=== PATIENT | female | born 1990 | race Caucasian/White ===

== ENCOUNTER 2021-01-15 07:50 | Day surgery (SDC) | payer BC, OTHER ==
[2021-01-13 15:45] LABS: BLOOD UREA NITROGEN,BUN 12 mg/dL (7.0-18.0); CARBON DIOXIDE,CO2 28.4 mmol/L (21.0-32.0); CHLORIDE,CL 101 mmol/L (98-107); GLUCOSE RANDOM 79 mg/dL (74-106); POTASSIUM,K 3.9 mmol/L (3.5-5.1); SODIUM,NA 136 mmol/L (136-145)
[~2021-01-15 07:50] MED LIST: Sodium Chloride 0.9% 10 ML SDV IV PRN; Sodium Chloride 0.9% 10 ML Syringe FLUSH PRN; Sodium Chloride 0.9% 2.5 ML Syringe FLUSH PRN; ceFAZolin 2 GM in Premix Bag 1 BAG IV ONE
[2021-01-15] MEDS ORDERED: Dexamethasone 4 MG/ML 5 ML MDV ONE (08:06)
[2021-01-15] MEDS ORDERED: Sugammadex Sodium 200 MG/2 ML VIAL ONE (08:06)
[2021-01-15] MEDS ORDERED: Rocuronium Bromide 50 MG/5 ML Syringe ONE (08:06)
[2021-01-15] MEDS ORDERED: Lidocaine 2% 5 ML SDV ONE (08:06)
[2021-01-15] MEDS ORDERED: fentaNYL 100 MCG/2 ML SDV ONE ×2 (08:06→09:14)
[2021-01-15] MEDS ORDERED: Propofol 200 MG/20 ML SDV ONE (08:06)
[2021-01-15] MEDS ORDERED: Ondansetron 4 MG/2 ML SDV ONE (08:06)
[2021-01-15] MEDS ORDERED: Midazolam 1 MG/ML 2 ML SDV ONE (08:07)
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
[2021-01-15] MEDS ORDERED: Ondansetron 4 MG/2 ML SDV IVPUSH PRN ×2 (08:09→09:57)
[2021-01-15] MEDS ORDERED: Morphine 10 MG/ML Syringe IVPUSH PRN (08:09)
[2021-01-15] MEDS ORDERED: Naloxone 0.4 MG/ML Syringe IVPUSH PRN (08:09)
[2021-01-15] MEDS ORDERED: Albuterol 0.083% 2.5 MG/3 ML Neb Soln NEB PRN (08:09)
[2021-01-15] MEDS ORDERED: fentaNYL 100 MCG/2 ML SDV IVPUSH PRN (08:09)
[2021-01-15] MEDS ORDERED: Metoclopramide 10 MG/2 ML SDV IVPUSH PRN (08:09)
[2021-01-15] MEDS: Lactated Ringers 1,000 ML IV SCH ×2 (08:24→13:58)
[2021-01-15] MEDS ORDERED: Fluorescein 5 ML Vial ONE (08:40)
[2021-01-15] MEDS ORDERED: Promethazine 25 MG/ML SDV ONE (08:52)
[2021-01-15] MEDS ORDERED: Sodium Chloride 0.9% 20 ML ONE (09:00)
[2021-01-15] MEDS ORDERED: Ketorolac 30 MG/ML SDV ONE (09:49)
[2021-01-15] MEDS ORDERED: Octyl 2-Cyanoacrylate 1 Tube ONE (09:50)
[2021-01-15] MEDS ORDERED: Ketorolac 30 MG/ML SDV IVPUSH ONE (09:57)
[2021-01-15] MEDS ORDERED: Acetaminophen/oxyCODONE 325-5 MG Tab PO PRN ×2 (09:57)
[2021-01-15] MEDS ORDERED: Ketorolac 30 MG/ML SDV IVPUSH PRN (09:57)
[2021-01-15] MEDS ORDERED: Promethazine 25 MG/ML SDV IM PRN (09:57)
--- NOTE | 2021-01-15 10:04 | PCM.OPNOTE ---
- General Post-Op/Procedure Note Date of Surgery/Procedure: 01/15/21 Operative Procedure(s): TLH,DSO and Cysto Pre Op Diagnosis: Pelvic pain Anesthesia Technique: General ET Tube Primary Surgeon: Alan Leiva EBL in mLs: 50 Condition: Good
--- NOTE | 2021-01-15 10:24 | PCM.POSTAN ---
POST ANESTHESIA ASSESSMENT - MENTAL STATUS Mental Status: Somnolent - VITAL SIGNS Vital Signs: Last Vital Signs Temp 97.0 F 01/15/21 07:55 Pulse 73 01/15/21 07:55 Resp 15 01/15/21 07:55 BP 86/60 L 01/15/21 07:55 Pulse Ox 99 01/15/21 07:55 - RESPIRATORY Respiratory Status: Respiratory Rate WNL, Airway Patent, O2 Saturation Stable - CARDIOVASCULAR CV Status: Pulse Rate WNL, Blood Pressure Stable - GASTROINTESTINAL GI Status: No Symptoms - PAIN Free Text/Narrative:: resting comfortably - POST OP HYDRATION Hydration Status: Adequate & Stable
[2021-01-15] MEDS: HYDROmorphone 1 MG/ML Syringe IVPUSH PRN ×2 (10:42→10:52)
--- NOTE | 2021-01-15 11:12 | PCM48HPAN ---
Post Anesthesia Note - EVALUATION WITHIN 48HRS OF ANESTHETIC Vital Signs in Normal Range: Yes Patient Participated in Evaluation: Yes Respiratory Function Stable: Yes Airway Patent: Yes Cardiovascular Function Stable: Yes Hydration Status Stable: Yes Pain Control Satisfactory: Yes Nausea and Vomiting Control Satisfactory: Yes Mental Status Recovered: Yes Vital Signs: Last Vital Signs Temp 97.5 F 01/15/21 10:13 Pulse 104 H 01/15/21 11:03 Resp 16 01/15/21 11:03 BP 93/64 01/15/21 11:03 Pulse Ox 96 01/15/21 11:03
--- NOTE | 2021-01-15 12:08 | OR ---
SURGEON: Alan Leiva MD DATE OF PROCEDURE: 01/15/2021 PREOPERATIVE DIAGNOSES: Pelvic pain, strong family history of ovarian cancer. POSTOPERATIVE DIAGNOSES: Pelvic pain, strong family history of ovarian cancer. OPERATIONS PERFORMED: Total laparoscopic hysterectomy, laparoscopic bilateral salpingo-oophorectomy, and cystoscopy. PRIMARY SURGEON: Alan Leiva MD APPEALS OFFICER: CORTEZ pérez. ANESTHESIA: General endotracheal intubation. ESTIMATED BLOOD LOSS: Less than 100 mL. COMPLICATIONS: None. FINDINGS: Uterus is about 8 to 10 weeks size. Both ovaries are essentially normal looking. INDICATIONS FOR SURGERY: [place] referred to the admit note. PROCEDURE IN DETAIL: The patient was brought to the OR, properly identified, and after adequate level of anesthesia, the patient was placed in lithotomy position with an access to the abdomen and the vagina. The patient was prepped and draped, and then the colpotomizer manipulator placed in the uterus for manipulation, and appropriate balloon was deflated. The operation shifted abdominally. Stab wound done beneath the umbilicus. The Veress needle was placed in the peritoneal cavity and that cavity insufflated with adequate amount of carbon dioxide, and then utilizing the Visiport technique, the peritoneal cavity was entered. A 10/12 trocar was placed in the left iliac fossa under direct vision and 5 mm trocar in the right iliac fossa. The patient was placed in steep Trendelenburg, and after inspection of the pelvis and familiarizing ourself with the anatomy, the procedure was started by utilizing the Aston Harmonic scalpel. The superior pedicle was coagulated, transected from both sides. Tubes and ovary included with the specimen. The same thing was done with the round ligament, and then the anterior leaf of the broad ligament was dissected downwards medially pushing the bladder completely away from the operative field. The uterine vessel was coagulated at the level of the manipulator on both sides, and then the vagina was entered using the Aston Harmonic scalpel in a circular fashion detaching the cervix from its attachment to the vagina. Once we did that, we removed the cervix, tubes, and ovary vaginally, and pneumoperitoneum re-established by placing vaginal pack in the vagina. Thorough irrigation of the pelvic, inspection of the whole operative field showed no oozing, no bleeding. We proceeded to close the vaginal cuff laparoscopically with 2-0 PDS interrupted, and while we were doing that, we asked Anesthesia personnel to give the patient fluorescein, and after closing the vagina and deflating the abdomen, the [place] catheter was removed. Cystoscopy was performed. The bladder was intact. Both ureteric orifices were seen with the dye coming from both of them verifying the patency of both ureters. Satisfied with these procedures, the procedure ended after closing the laparoscopic incisions in layers. Instrument and sponge counts were correct. The patient tolerated the procedure well, went to recovery room in stable general condition. JADA / ALICJA /[id number]
[2021-01-15] MEDS: Morphine 4 MG/ML Syringe IVPUSH PRN ×3 (13:49→20:26)
[2021-01-15] MEDS: Docusate Sodium 100 MG Cap PO SCH (18:27)
[2021-01-16] MEDS: Morphine 4 MG/ML Syringe IVPUSH PRN ×3 (00:05→08:48)
[2021-01-16 06:17] LABS: BLOOD UREA NITROGEN,BUN 7 mg/dL (7.0-18.0); CARBON DIOXIDE,CO2 28.8 mmol/L (21.0-32.0); CHLORIDE,CL 106 mmol/L (98-107); GLUCOSE RANDOM 95 mg/dL (74-106); POTASSIUM,K 3.5 mmol/L (3.5-5.1); SODIUM,NA 140 mmol/L (136-145)
[2021-01-16] MEDS: Docusate Sodium 100 MG Cap PO SCH (08:48)
--- NOTE | 2021-01-16 08:52 | PCM.SURGPN ---
- General Info Date of Service: 01/16/21 POD#: 1 Functional Status: Reports: Pain Controlled - Review of Systems General: Reports: No Symptoms HEENT: Reports: No Symptoms Pulmonary: Reports: No Symptoms Cardiovascular: Reports: No Symptoms Gastrointestinal: Reports: No Symptoms Genitourinary: Reports: No Symptoms Musculoskeletal: Reports: No Symptoms Skin: Reports: No Symptoms Neurological: Reports: No Symptoms Psychiatric: Reports: No Symptoms - Patient Data Vitals - Most Recent: Last Vital Signs Temp 36.9 C 01/16/21 04:01 Pulse 89 01/16/21 04:01 Resp 18 01/16/21 04:01 BP 95/52 L 01/16/21 04:01 Pulse Ox 99 01/16/21 04:01 Weight - Most Recent: 79.832 kg I&O - Last 24 Hours: Intake & Output 01/15/21 01/16/21 01/16/21 22:59 06:59 14:59 Intake Total 800 950 Output Total 900 650 Balance -100 300 Lab Results Last 24 Hrs: Laboratory Results - last 24 hr 01/16/21 01/16/21 Range/Units 04:50 04:50 WBC 8.94 (4.0-11.0) K/uL RBC 3.71 L (4.30-5.90) M/uL Hgb 10.5 L (12.0-16.0) g/dL Hct 32.4 L (36.0-46.0) % MCV 87.3 (80.0-98.0) fL MCH 28.3 (27.0-32.0) pg MCHC 32.4 (31.0-37.0) g/dL RDW Std Deviation 47.0 (28.0-62.0) fl RDW Coeff of Aubree 15 (11.0-15.0) % Plt Count 229 (150-400) K/uL MPV 10.80 (7.40-12.00) fL Neut % (Auto) 68.9 (48.0-80.0) % Lymph % (Auto) 16.6 (16.0-40.0) % [place] % (Auto) 14.4 (0.0-15.0) % Eos % (Auto) 0.0 (0.0-7.0) % Baso % (Auto) 0.1 (0.0-1.5) % Neut # (Auto) 6.2 H (1.4-5.7) K/uL Lymph # (Auto) 1.5 (0.6-2.4) K/uL [place] # (Auto) 1.3 H (0.0-0.8) K/uL Eos # (Auto) 0.0 (0.0-0.7) K/uL Baso # (Auto) 0.0 (0.0-0.1) K/uL Nucleated RBC % 0.0 /100WBC Nucleated RBCs # 0 K/uL Sodium 140 (136-145) mmol/L Potassium 3.5 (3.5-5.1) mmol/L Chloride 106 (98-107) mmol/L Carbon Dioxide 28.8 (21.0-32.0) mmol/L BUN 7 (7.0-18.0) mg/dL Creatinine 0.7 (0.6-1.0) mg/dL Est Cr Clr Drug Dosing 131.34 mL/min Estimated GFR (MDRD) > 60.0 ml/min Glucose 95 (74-106) mg/dL Calcium 7.6 L (8.5-10.1) mg/dL Med Orders - Current: Current Medications Docusate Sodium (Docusate Sodium 100 Mg Cap) 200 mg PO DAILY [facility] Last Admin: 01/15/21 18:27 Dose: 200 mg Documented by: Lactated Ringer's (Ringers, Lactated) 1,000 mls @ 100 mls/hr IV ASDIRECTED [facility] Last Admin: 01/15/21 13:58 Dose: 100 mls/hr Documented by: Ketorolac Tromethamine (Ketorolac 30 Mg/Ml Sdv) 30 mg IVPUSH Q6H PRN PRN Reason: Pain (severe 7-10) Stop: 01/20/21 09:57 Last Admin: 01/16/21 00:38 Dose: 30 mg Documented by: Morphine Sulfate (Morphine 4 Mg/Ml Syringe) 4 mg IVPUSH Q2H PRN PRN Reason: Pain (severe 7-10) Last Admin: 01/16/21 05:06 Dose: 4 mg Documented by: Ondansetron HCl (Ondansetron 4 Mg/2 Ml Sdv) 4 mg IVPUSH Q6H PRN PRN Reason: Nausea/Vomiting Oxycodone/Acetaminophen (Acetaminophen/Oxycodone 325-5 Mg Tab) 1 tab PO Q4H PRN PRN Reason: Pain (moderate 4-6) Oxycodone/Acetaminophen (Acetaminophen/Oxycodone 325-5 Mg Tab) 2 tab PO Q4H PRN PRN Reason: Pain (moderate 4-6) Desvenlafaxine [ Desvenlafaxine Er] 100 Mg Tab.Er.24h 1 each PO DAILY@1999 [facility] Promethazine HCl (Promethazine 25 Mg/Ml Sdv) 25 mg IM Q6H PRN PRN Reason: Nausea/Vomiting Sodium Chloride (Sodium Chloride 0.9% 10 Ml Syringe) 10 ml FLUSH ASDIRECTED PRN PRN Reason: Keep Vein Open Sodium Chloride (Sodium Chloride 0.9% 2.5 Ml Syringe) 2.5 ml FLUSH ASDIRECTED PRN PRN Reason: Keep Vein Open Sodium Chloride (Sodium Chloride 0.9% 10 Ml Sdv) 10 ml IV ASDIRECTED PRN PRN Reason: IV Use Discontinued Medications Albuterol (Albuterol 0.083% 2.5 Mg/3 Ml Neb Soln) 2.5 mg NEB ONETIME PRN PRN Reason: Wheezing Dexamethasone (Dexamethasone 4 Mg/Ml 5 Ml Mdv) Confirm Administered Dose 20 mg .ROUTE .STK-MED ONE Stop: 01/15/21 08:07 Droperidol (Droperidol 5 Mg/2 Ml Sdv) 0.625 mg IVPUSH ONETIME PRN PRN Reason: Nausea/Vomiting Fentanyl (Fentanyl 100 Mcg/2 Ml Sdv) Confirm Administered Dose 100 mcg .ROUTE .STK-MED ONE Stop: 01/15/21 08:07 Fentanyl (Fentanyl 100 Mcg/2 Ml Sdv) 50 mcg IVPUSH Q5M PRN PRN Reason: Pain (mild 1-3) Fentanyl (Fentanyl 100 Mcg/2 Ml Sdv) Confirm Administered Dose 100 mcg .ROUTE .STK-MED ONE Stop: 01/15/21 09:15 Fluorescein Sodium (Fluorescein 5 Ml Vial) Confirm Administered Dose 5 ml .ROUTE .STK-MED ONE Stop: 01/15/21 08:41 Hydromorphone HCl (Hydromorphone 1 Mg/Ml Syringe) 1 mg IVPUSH Q10M PRN PRN Reason: Pain (moderate 4-6) Last Admin: 01/15/21 10:52 Dose: 1 mg Documented by: Cefazolin Sodium/Dextrose 2 gm (/ Premix) 50 mls @ 100 mls/hr IV ONETIME ONE Stop: 01/13/21 13:57 Acetaminophen (Ofirmev 1000 Mg/100 Ml) Confirm Administered Dose 100 mls @ as directed .ROUTE .ST-MED ONE Stop: 01/15/21 08:07 Sodium Chloride (Normal Saline) Confirm Administered Dose 20 mls @ as directed .ROUTE .ST-MED ONE Stop: 01/15/21 09:01 Ketorolac Tromethamine (Ketorolac 30 Mg/Ml Sdv) Confirm Administered Dose 30 mg .ROUTE .ST-MED ONE Stop: 01/15/21 09:50 Ketorolac Tromethamine (Ketorolac 30 Mg/Ml Sdv) 30 mg IVPUSH ONETIME ONE Stop: 01/15/21 09:58 Last Admin: 01/15/21 13:07 Dose: Not Given Documented by: Lidocaine (Lidocaine 2% 5 Ml Sdv) Confirm Administered Dose 5 ml .ROUTE .ST-MED ONE Stop: 01/15/21 08:07 Metoclopramide HCl (Metoclopramide 10 Mg/2 Ml Sdv) 10 mg IVPUSH ONETIME PRN PRN Reason: Nausea/Vomiting Midazolam HCl (Midazolam 1 Mg/Ml 2 Ml Sdv) Confirm Administered Dose 4 mg .ROUTE .ST-MED ONE Stop: 01/15/21 08:08 Morphine Sulfate (Morphine 10 Mg/Ml Syringe) 2 mg IVPUSH Q10M PRN PRN Reason: Pain (severe 7-10) Naloxone HCl (Naloxone 0.4 Mg/Ml Syringe) 0.1 mg IVPUSH ASDIRECTED PRN PRN Reason: Respiratory Depression Octyl Cyanoacrylate (Octyl 2-Cyanoacrylate 1 Tube) Confirm Administered Dose 1 applic .ROUTE .ST-MED ONE Stop: 01/15/21 09:51 Ondansetron HCl (Ondansetron 4 Mg/2 Ml Sdv) Confirm Administered Dose 4 mg .ROUTE .STBroadHop-MED ONE Stop: 01/15/21 08:07 Ondansetron HCl (Ondansetron 4 Mg/2 Ml Sdv) 4 mg IVPUSH ONETIME PRN PRN Reason: Nausea/Vomiting Promethazine HCl (Promethazine 25 Mg/Ml Sdv) Confirm Administered Dose 25 mg .ROUTE .STK-MED ONE Stop: 01/15/21 08:53 Propofol (Propofol 200 Mg/20 Ml Sdv) Confirm Administered Dose 200 mg .ROUTE .STK-MED ONE Stop: 01/15/21 08:07 Rocuronium [place] (Rocuronium [place] 50 Mg/5 Ml Syringe) Confirm Administered Dose 50 mg .ROUTE .STK-MED ONE Stop: 01/15/21 08:07 Sugammadex Sodium (Sugammadex Sodium 200 Mg/2 Ml Vial) Confirm Administered Dose 200 mg .ROUTE .STK-MED ONE Stop: 01/15/21 08:07 - Exam Wound/Incisions: Healing Well General: Alert, Oriented HEENT: Pupils Equal Neck: Supple Lungs: Clear to Auscultation, Normal Respiratory Effort Cardiovascular: Regular Rate, Regular Rhythm GI/Abdominal Exam: Normal Bowel Sounds, Soft, Non-Tender, No Organomegaly, No Distention, No Abnormal Bruit, No Mass, Pelvis Stable Extremities: Normal Inspection, Normal Range of Motion, Non-Tender, No Pedal Edema, Normal Capillary Refill Skin: Warm, Dry, Intact Neurological: No New Focal Deficit Psy/Mental Status: Alert, Normal Affect, Normal Mood Sepsis Event Note - Evaluation Sepsis Screening Result: No Definite Risk - Focused Exam Vital Signs: Vital Signs Temp Pulse Resp BP Pulse Ox Pulse Ox 01/16/21 04:01 36.9 C 89 18 95/52 L 99 01/16/21 00:08 36.6 C 89 18 105/56 L 98 01/15/21 23:00 96 - Problem List Review Problem List Initiated/Reviewed/Updated: Yes - My Orders Last 24 Hours: Active Orders 24 hr Category Date Time Status Patient Status [ADT] Routine ADT 01/15/21 09:57 Active Antiembolic Devices [RC] PER UNIT ROUTINE Care 01/15/21 09:59 Active Notify Provider Vital Signs [RC] ASDIRECTED Care 01/15/21 09:57 Active Overnight Pulse Oximetry [RC] Click to Edit Care 01/15/21 08:10 Active Oxygen Therapy [RC] ASDIRECTED Care 01/15/21 09:57 Active RT Incentive Spirometry [RC] Q2HWA Care 01/15/21 09:57 Active Up With Assistance [RC] PER UNIT ROUTINE Care 01/15/21 09:57 Active Up ad Abby [RC] PER UNIT ROUTINE Care 01/15/21 09:57 Active Vital Signs [RC] PER UNIT ROUTINE Care 01/15/21 09:57 Active Regular Diet [DIET] Diet 01/15/21 Lunch Active Acetaminophen/oxyCODONE [Percocet 325-5 MG] Med 01/15/21 09:57 Active 1 tab PO Q4H PRN Acetaminophen/oxyCODONE [Percocet 325-5 MG] Med 01/15/21 09:57 Active 2 tab PO Q4H PRN Docusate Sodium [Colace] Med 01/15/21 18:00 Active 200 mg PO DAILY Ketorolac [Toradol] Med 01/15/21 09:57 Active 30 mg IVPUSH Q6H PRN Morphine Med 01/15/21 09:57 Active 4 mg IVPUSH Q2H PRN Ondansetron [Zofran] Med 01/15/21 09:57 Active 4 mg IVPUSH Q6H PRN Patient's Own Medication [Ptom] Med 01/16/21 20:00 Active 1 each PO DAILY@1999 Promethazine [Phenergan] Med 01/15/21 09:57 Active 25 mg IM Q6H PRN Peripheral IV Discontinue [OM.PC] Routine Oth 01/15/21 09:57 Ordered Pulse Oximetry Continuous Monitoring [OM.PC] Routine Oth 01/15/21 08:10 Ordered Sequential Compression Device [OM.PC] Per Unit Routine Oth 01/15/21 09:57 Ordered Resuscitation Status Routine Resus Stat 01/15/21 09:57 Ordered Medication Orders Docusate Sodium (Docusate Sodium 100 Mg Cap) 200 mg PO DAILY [facility] Last Admin: 01/15/21 18:27 Dose: 200 mg Documented by: ASHA Lactated Ringer's (Ringers, Lactated) 1,000 mls @ 100 mls/hr IV ASDIRECTED [facility] Last Admin: 01/15/21 13:58 Dose: 100 mls/hr Documented by: Infusion: 01/15/21 13:58 Dose: 100 mls/hr Documented by: Admin: 01/15/21 08:24 Dose: 100 mls/hr Documented by: PITO Ketorolac Tromethamine (Ketorolac 30 Mg/Ml Sdv) 30 mg IVPUSH Q6H PRN PRN Reason: Pain (severe 7-10) Stop: 01/20/21 09:57 Last Admin: 01/16/21 00:38 Dose: 30 mg Documented by: LORENZA Morphine Sulfate (Morphine 4 Mg/Ml Syringe) 4 mg IVPUSH Q2H PRN PRN Reason: Pain (severe 7-10) Last Admin: 01/16/21 05:06 Dose: 4 mg Documented by: Admin: 01/16/21 00:05 Dose: 4 mg Documented by: Admin: 01/15/21 20:26 Dose: 4 mg Documented by: Admin: 01/15/21 17:06 Dose: 4 mg Documented by: Admin: 01/15/21 13:49 Dose: 4 mg Documented by: JIM Ondansetron HCl (Ondansetron 4 Mg/2 Ml Sdv) 4 mg IVPUSH Q6H PRN PRN Reason: Nausea/Vomiting Oxycodone/Acetaminophen (Acetaminophen/Oxycodone 325-5 Mg Tab) 1 tab PO Q4H PRN PRN Reason: Pain (moderate 4-6) Oxycodone/Acetaminophen (Acetaminophen/Oxycodone 325-5 Mg Tab) 2 tab PO Q4H PRN PRN Reason: Pain (moderate 4-6) Desvenlafaxine [ Desvenlafaxine Er] 100 Mg Tab.Er.24h 1 each PO DAILY@2000 [facility] Promethazine HCl (Promethazine 25 Mg/Ml Sdv) 25 mg IM Q6H PRN PRN Reason: Nausea/Vomiting Sodium Chloride (Sodium Chloride 0.9% 10 Ml Syringe) 10 ml FLUSH ASDIRECTED PRN PRN Reason: Keep Vein Open Sodium Chloride (Sodium Chloride 0.9% 2.5 Ml Syringe) 2.5 ml FLUSH ASDIRECTED PRN PRN Reason: Keep Vein Open Sodium Chloride (Sodium Chloride 0.9% 10 Ml Sdv) 10 ml IV ASDIRECTED PRN PRN Reason: IV Use - Assessment Assessment (Free Text/Narrative):: Uterus posteriorly LH BSO postoperative day #1 patient is doing well ambulatory voiding on regular diet no vaginal bleeding. Her lab work is within normal limit - Plan Plan (Free Text/Narrative):: Patient will be sent home today the post hysterectomy instruction is given to her there is no restriction on her diet she was given a prescription of Narco 5/325 for postoperative pain and she have an appointment to the office in one week
--- NOTE | 2021-01-16 08:53 | PCM.DCSUM1 ---
Discharge Summary - Hospital Course Diagnosis: Stroke: No - Discharge Data Discharge Date: 01/16/21 Discharge Disposition: Home, Self-Care 01 Condition: Good - Referral to Home Health Primary Care Physician: Raina English NP - Patient Summary/Data Operative Procedure(s) Performed: TLH,DSO and Cysto - Patient Instructions Diet: Usual Diet as Tolerated Activity: As Tolerated Driving: Do Not Drive Showering/Bathing: May Shower - Discharge Plan Home Medications: Home Meds Albuterol Sulfate [Albuterol Sulfate HFA] 1 puff INH ASDIRECTED PRN 01/09/21 [History] Ascorbic Acid [Vitamin C] 1,000 mg PO DAILY 01/09/21 [History] Budesonide/Formoterol Fumarate [Symbicort 160-4.5 Mcg Inhaler] 1 puff INH ASDIRECTED PRN 01/09/21 [History] Desvenlafaxine [Desvenlafaxine ER] 100 mg PO DAILY 01/09/21 [History] LORazepam [Ativan] 0.5 mg PO BID PRN 01/09/21 [History] Montelukast Sodium 5 mg PO DAILY 01/09/21 [History] OLANZapine [Olanzapine] 10 mg PO ASDIRECTED PRN 01/09/21 [History] Ondansetron [Zofran] 8 mg PO Q8H PRN 01/09/21 [History] Zinc Gluconate [Zinc] 100 mg PO DAILY 01/09/21 [History] Docusate Sodium [Colace] 200 mg PO DAILY 01/15/21 [History] Simethicone [Phazyme] 500 mg PO DAILY PRN 01/15/21 [History] - Discharge Summary/Plan Comment DC Time >30 min.: Yes Total # of Minutes for Discharge Time: 30 - General Info Date of Service: 01/16/21 Functional Status: Reports: Pain Controlled - Review of Systems General: Reports: No Symptoms HEENT: Reports: No Symptoms Pulmonary: Reports: No Symptoms Cardiovascular: Reports: No Symptoms Gastrointestinal: Reports: No Symptoms Genitourinary: Reports: No Symptoms Musculoskeletal: Reports: No Symptoms Skin: Reports: No Symptoms Neurological: Reports: No Symptoms Psychiatric: Reports: No Symptoms - Patient Data Vitals - Most Recent: Last Vital Signs Temp 36.9 C 01/16/21 04:01 Pulse 89 01/16/21 04:01 Resp 18 01/16/21 04:01 BP 95/52 L 01/16/21 04:01 Pulse Ox 99 01/16/21 04:01 Weight - Most Recent: 79.832 kg I&O - Last 24 hours: Intake & Output 01/15/21 01/16/21 01/16/21 22:59 06:59 14:59 Intake Total 800 950 Output Total 900 650 Balance -100 300 Lab Results - Last 24 hrs: Laboratory Results - last 24 hr 01/16/21 01/16/21 Range/Units 04:50 04:50 WBC 8.94 (4.0-11.0) K/uL RBC 3.71 L (4.30-5.90) M/uL Hgb 10.5 L (12.0-16.0) g/dL Hct 32.4 L (36.0-46.0) % MCV 87.3 (80.0-98.0) fL MCH 28.3 (27.0-32.0) pg MCHC 32.4 (31.0-37.0) g/dL RDW Std Deviation 47.0 (28.0-62.0) fl RDW Coeff of Aubree 15 (11.0-15.0) % Plt Count 229 (150-400) K/uL MPV 10.80 (7.40-12.00) fL Neut % (Auto) 68.9 (48.0-80.0) % Lymph % (Auto) 16.6 (16.0-40.0) % [place] % (Auto) 14.4 (0.0-15.0) % Eos % (Auto) 0.0 (0.0-7.0) % Baso % (Auto) 0.1 (0.0-1.5) % Neut # (Auto) 6.2 H (1.4-5.7) K/uL Lymph # (Auto) 1.5 (0.6-2.4) K/uL [place] # (Auto) 1.3 H (0.0-0.8) K/uL Eos # (Auto) 0.0 (0.0-0.7) K/uL Baso # (Auto) 0.0 (0.0-0.1) K/uL Nucleated RBC % 0.0 /100WBC Nucleated RBCs # 0 K/uL Sodium 140 (136-145) mmol/L Potassium 3.5 (3.5-5.1) mmol/L Chloride 106 (98-107) mmol/L Carbon Dioxide 28.8 (21.0-32.0) mmol/L BUN 7 (7.0-18.0) mg/dL Creatinine 0.7 (0.6-1.0) mg/dL Est Cr Clr Drug Dosing 131.34 mL/min Estimated GFR (MDRD) > 60.0 ml/min Glucose 95 (74-106) mg/dL Calcium 7.6 L (8.5-10.1) mg/dL Med Orders - Current: Current Medications Docusate Sodium (Docusate Sodium 100 Mg Cap) 200 mg PO DAILY [facility] Last Admin: 01/15/21 18:27 Dose: 200 mg Documented by: Lactated Ringer's (Ringers, Lactated) 1,000 mls @ 100 mls/hr IV ASDIRECTED [facility] Last Admin: 01/15/21 13:58 Dose: 100 mls/hr Documented by: Ketorolac Tromethamine (Ketorolac 30 Mg/Ml Sdv) 30 mg IVPUSH Q6H PRN PRN Reason: Pain (severe 7-10) Stop: 01/20/21 09:57 Last Admin: 01/16/21 00:38 Dose: 30 mg Documented by: Morphine Sulfate (Morphine 4 Mg/Ml Syringe) 4 mg IVPUSH Q2H PRN PRN Reason: Pain (severe 7-10) Last Admin: 01/16/21 05:06 Dose: 4 mg Documented by: Ondansetron HCl (Ondansetron 4 Mg/2 Ml Sdv) 4 mg IVPUSH Q6H PRN PRN Reason: Nausea/Vomiting Oxycodone/Acetaminophen (Acetaminophen/Oxycodone 325-5 Mg Tab) 1 tab PO Q4H PRN PRN Reason: Pain (moderate 4-6) Oxycodone/Acetaminophen (Acetaminophen/Oxycodone 325-5 Mg Tab) 2 tab PO Q4H PRN PRN Reason: Pain (moderate 4-6) Desvenlafaxine [ Desvenlafaxine Er] 100 Mg Tab.Er.24h 1 each PO DAILY@1999 [facility] Promethazine HCl (Promethazine 25 Mg/Ml Sdv) 25 mg IM Q6H PRN PRN Reason: Nausea/Vomiting Sodium Chloride (Sodium Chloride 0.9% 10 Ml Syringe) 10 ml FLUSH ASDIRECTED PRN PRN Reason: Keep Vein Open Sodium Chloride (Sodium Chloride 0.9% 2.5 Ml Syringe) 2.5 ml FLUSH ASDIRECTED PRN PRN Reason: Keep Vein Open Sodium Chloride (Sodium Chloride 0.9% 10 Ml Sdv) 10 ml IV ASDIRECTED PRN PRN Reason: IV Use Discontinued Medications Albuterol (Albuterol 0.083% 2.5 Mg/3 Ml Neb Soln) 2.5 mg NEB ONETIME PRN PRN Reason: Wheezing Dexamethasone (Dexamethasone 4 Mg/Ml 5 Ml Mdv) Confirm Administered Dose 20 mg .ROUTE .STK-MED ONE Stop: 01/15/21 08:07 Droperidol (Droperidol 5 Mg/2 Ml Sdv) 0.625 mg IVPUSH ONETIME PRN PRN Reason: Nausea/Vomiting Fentanyl (Fentanyl 100 Mcg/2 Ml Sdv) Confirm Administered Dose 100 mcg .ROUTE .STK-MED ONE Stop: 01/15/21 08:07 Fentanyl (Fentanyl 100 Mcg/2 Ml Sdv) 50 mcg IVPUSH Q5M PRN PRN Reason: Pain (mild 1-3) Fentanyl (Fentanyl 100 Mcg/2 Ml Sdv) Confirm Administered Dose 100 mcg .ROUTE .STK-MED ONE Stop: 01/15/21 09:15 Fluorescein Sodium (Fluorescein 5 Ml Vial) Confirm Administered Dose 5 ml .ROUTE .STK-MED ONE Stop: 01/15/21 08:41 Hydromorphone HCl (Hydromorphone 1 Mg/Ml Syringe) 1 mg IVPUSH Q10M PRN PRN Reason: Pain (moderate 4-6) Last Admin: 01/15/21 10:52 Dose: 1 mg Documented by: Cefazolin Sodium/Dextrose 2 gm (/ Premix) 50 mls @ 100 mls/hr IV ONETIME ONE Stop: 01/13/21 13:57 Acetaminophen (Ofirmev 1000 Mg/100 Ml) Confirm Administered Dose 100 mls @ as directed .ROUTE .STK-MED ONE Stop: 01/15/21 08:07 Sodium Chloride (Normal Saline) Confirm Administered Dose 20 mls @ as directed .ROUTE .STK-MED ONE Stop: 01/15/21 09:01 Ketorolac Tromethamine (Ketorolac 30 Mg/Ml Sdv) Confirm Administered Dose 30 mg .ROUTE .STBevBucks-MED ONE Stop: 01/15/21 09:50 Ketorolac Tromethamine (Ketorolac 30 Mg/Ml Sdv) 30 mg IVPUSH ONETIME ONE Stop: 01/15/21 09:58 Last Admin: 01/15/21 13:07 Dose: Not Given Documented by: Lidocaine (Lidocaine 2% 5 Ml Sdv) Confirm Administered Dose 5 ml .ROUTE .STK-MED ONE Stop: 01/15/21 08:07 Metoclopramide HCl (Metoclopramide 10 Mg/2 Ml Sdv) 10 mg IVPUSH ONETIME PRN PRN Reason: Nausea/Vomiting Midazolam HCl (Midazolam 1 Mg/Ml 2 Ml Sdv) Confirm Administered Dose 4 mg .ROUTE .STBevBucks-MED ONE Stop: 01/15/21 08:08 Morphine Sulfate (Morphine 10 Mg/Ml Syringe) 2 mg IVPUSH Q10M PRN PRN Reason: Pain (severe 7-10) Naloxone HCl (Naloxone 0.4 Mg/Ml Syringe) 0.1 mg IVPUSH ASDIRECTED PRN PRN Reason: Respiratory Depression Octyl Cyanoacrylate (Octyl 2-Cyanoacrylate 1 Tube) Confirm Administered Dose 1 applic .ROUTE .STBevBucks-MED ONE Stop: 01/15/21 09:51 Ondansetron HCl (Ondansetron 4 Mg/2 Ml Sdv) Confirm Administered Dose 4 mg .ROUTE .STBevBucks-MED ONE Stop: 01/15/21 08:07 Ondansetron HCl (Ondansetron 4 Mg/2 Ml Sdv) 4 mg IVPUSH ONETIME PRN PRN Reason: Nausea/Vomiting Promethazine HCl (Promethazine 25 Mg/Ml Sdv) Confirm Administered Dose 25 mg .ROUTE .ST[place]ev[place]ucks-MED ONE Stop: 01/15/21 08:53 Propofol (Propofol 200 Mg/20 Ml Sdv) Confirm Administered Dose 200 mg .ROUTE .STBev[facility]ucks-MED ONE Stop: 01/15/21 08:07 Rocuronium Drayden (Rocuronium Drayden 50 Mg/5 Ml Syringe) Confirm Administered Dose 50 mg .ROUTE .STBevBucks-MED ONE Stop: 01/15/21 08:07 Sugammadex Sodium (Sugammadex Sodium 200 Mg/2 Ml Vial) Confirm Administered Dose 200 mg .ROUTE .K-MED ONE Stop: 01/15/21 08:07 - Exam General: Reports: Alert, Oriented HEENT: Reports: Pupils Equal, Pupils Reactive, EOMI, Mucous Membr. Moist/[place] Neck: Reports: Supple Lungs: Reports: Clear to Auscultation, Normal Respiratory Effort Cardiovascular: Reports: Regular Rate, Regular Rhythm GI/Abdominal Exam: Normal Bowel Sounds, Soft, Non-Tender, No Organomegaly, No Distention, No Abnormal Bruit, No Mass, Pelvis Stable (Female) Exam: Normal External Exam, Normal Speculum Exam, Normal Bimanual Exam Rectal (Female) Exam: Normal Exam, Normal Rectal Tone Back Exam: Reports: Normal Inspection, Full Range of Motion Extremities: Normal Inspection, Normal Range of Motion, Non-Tender, No Pedal Edema, Normal Capillary Refill Skin: Reports: Warm, Dry, Intact Wound/Incisions: Reports: Healing Well Neurological: Reports: No New Focal Deficit Psy/Mental Status: Reports: Alert, Normal Affect, Normal Mood
[2021-01-16] MEDS ORDERED: Desvenlafaxine [Desvenlafaxine Er] 100 MG Tab.Er.24h PO SCH (20:00)
== END 2021-01-16 10:30 | disposition home or self-care (01) ==
LOC: MW.SDS 07:50 → MW.MS 10:42 → MW.SDS 01-16 10:30
PROVIDERS: ATTEND Obstetrics & Gynecology
DX: D25.9 Leiomyoma of uterus, unspecified (principal); N87.9 Dysplasia of cervix uteri, unspecified; N83.02 Follicular cyst of left ovary; N83.01 Follicular cyst of right ovary; Z80.41 Family history of malignant neoplasm of ovary; Z79.899 Other long term (current) drug therapy
CPT/HCPCS: 36415; 58571; 80048; 84703; 85025; 85027; 86850; 86900; 86901; 88309; A9270; J0131; J1100; J1170; J1885; J2250; J2270; J2704; J3010; J3490; J7030; J7120; 00840; J2405

== ENCOUNTER 2021-02-03 14:58 | Emergency (ER) | payer OTHER ==
[2021-02-03] MEDS ORDERED: Ondansetron 4 MG/2 ML SDV IVPUSH ONE (15:12)
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
[2021-02-03 15:53] LABS: BLOOD UREA NITROGEN,BUN 11 mg/dL (7.0-18.0); CARBON DIOXIDE,CO2 28.4 mmol/L (21.0-32.0); CHLORIDE,CL 103 mmol/L (98-107); GLUCOSE RANDOM 99 mg/dL (74-106); LIPASE 100 U/L (73-393); POTASSIUM,K 4.4 mmol/L (3.5-5.1); SODIUM,NA 140 mmol/L (136-145)
--- NOTE | 2021-02-03 16:23 | CR ---
INDICATION: chest pain CHEST, ONE VIEW An AP radiograph of the chest was performed. Comparison: 10/24/2019. The lungs appear clear and no pleural effusions are identified. The cardiomediastinal silhouette and pulmonary vasculature appear normal, as do the visualized bones. IMPRESSION: No acute intrathoracic abnormality identified. RADHA MARTINEZ MD [facility] [employer] Dictated by: Oscar Martinez MD @ 02/03/2021 16:21:11 (Electronically Signed)
--- NOTE | 2021-02-03 17:17 | PCM.EKG ---
#1 Interpretation EKG Date: 02/03/21 Time: 15:27 Rhythm: NSR Rate (Beats/Min): 100 [place]: Normal P-Wave: Present QRS: Normal ST-T: Normal QT: Normal Comparison: NA - No Prior EKG EKG Interpretation Comments: Sinus Tachycardia
--- NOTE | 2021-02-03 17:22 | CT ---
INDICATION: Epigastric pain. Status post hysterectomy January 15, 2021, constipated TECHNIQUE: CT abdomen and pelvis acquired with 100 cc Isovue 370 IV contrast. COMPARISON: None FINDINGS: Lower chest: Unremarkable. Liver: Hepatic steatosis. Spleen: Unremarkable. Pancreas: Unremarkable. Gallbladder and bile ducts: S/p cholecystectomy. Adrenal glands: Unremarkable. Kidneys: Unremarkable. GI tract: Large amount of feces in the colon. Appendix is normal. Vascular structures: Unremarkable. Lymph nodes: Unremarkable. Miscellaneous: Small amount of intraperitoneal free air in the anterior, upper peritoneum. Pelvic Organs: Status post hysterectomy. No extraluminal air or fat stranding around the vaginal cuff. Bones: Unremarkable for age. IMPRESSION: Small amount of intraperitoneal free air. Although postoperative air likely resolves within 7-14 days, this could be due to the recent hysterectomy. No evidence for hollow organ inflammatory processes, bowel wall thickening, or free fluid. Consider surgical or gynecology consultation. Hepatic steatosis. Large amount of feces in the colon. Status post hysterectomy and cholecystectomy. These findings were discussed with Asiya Gonzalez at 5:15 p.m. on February 03, 2021. Please note that all CT scans at this facility use dose modulation, iterative reconstruction, and/or weight-based dosing when appropriate to reduce radiation dose to as low as reasonably achievable. Dictated by Diana Dallas MD @ 02/03/2021 5:20:39 PM (Electronically Signed)
[2021-02-03] MEDS ORDERED: Magnesium Citrate Solution 296 ML Bottle PO ONE (17:30)
== END 2021-02-03 18:00 | disposition home or self-care (01) ==
LOC: MW.ED 14:58
DX: K59.00 Constipation, unspecified (principal); J45.909 Unspecified asthma, uncomplicated; Z88.6 Allergy status to analgesic agent; Z91.030 Bee allergy status; Z88.5 Allergy status to narcotic agent; Z88.8 Allergy status to other drugs, medicaments and biological substances; Z91.040 Latex allergy status; Z91.010 Allergy to peanuts; Z88.0 Allergy status to penicillin; Z91.048 Other nonmedicinal substance allergy status; Z79.899 Other long term (current) drug therapy
CPT/HCPCS: 36415; 71045; 74177; 80053; 81001; 83690; 84484; 85025; 87086; 87635; 93005; 99284; A9270; U0002

== ENCOUNTER 2021-05-07 16:08 | Emergency (ER) | payer OTHER ==
[2021-05-07] MEDS ORDERED: Sodium Chloride 0.9% 10 ML Syringe FLUSH PRN ×2 (16:53→17:02)
[2021-05-07] MEDS ORDERED: Sodium Chloride 0.9% 20 ML SDV IV PRN (16:53)
[2021-05-07] MEDS ORDERED: Sodium Chloride 0.9% 2.5 ML Syringe FLUSH PRN ×2 (16:53→17:02)
[2021-05-07] MEDS ORDERED: Ketorolac 15 MG/ML SDV IVPUSH ONE (17:02)
[2021-05-07] MEDS ORDERED: diphenhydrAMINE 50 MG/ML SDV IVPUSH ONE (17:02)
[2021-05-07] MEDS ORDERED: Metoclopramide 10 MG/2 ML SDV IVPUSH ONE (17:02)
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
[2021-05-07] MEDS ORDERED: Ketorolac 30 MG/ML SDV IVPUSH ONE (17:34)
--- NOTE | 2021-05-07 17:42 | CT ---
INDICATION: Injury. Possible concussion. TECHNIQUE: CT of the head without contrast. Coronal and sagittal reformats are included. COMPARISON: Brain MRI from 01/05/2021. FINDINGS: No acute intracranial hemorrhage. No mass effect or midline shift. No hydrocephalus or extra-axial collections. White matter is within normal limits for age. No acute osseous abnormalities. Mastoid air cells and paranasal sinuses are clear. Normal soft tissues. IMPRESSION: IMPRESSION: 1. No acute intracranial abnormalities. Please note that all CT scans at this facility use dose modulation, iterative reconstruction, and/or weight-based dosing when appropriate to reduce radiation dose to as low as reasonably achievable. Dictated by Shree Waddell MD @ 05/07/2021 5:41:18 PM (Electronically Signed)
--- NOTE | 2021-05-07 17:58 | CT ---
INDICATION: Injury. Possible concussion. TECHNIQUE: CT of the cervical spine without contrast. Coronal and sagittal reformats are included. COMPARISON: None. FINDINGS: No acute fracture or traumatic malalignment of the cervical spine. Craniocervical junction alignment is maintained. No bony spinal canal or neural foraminal stenosis. Imaged intracranial structures, cervical and paraspinous soft tissues are normal in appearance. The visualized pulmonary apices are clear. IMPRESSION: 1. No acute fracture or traumatic malalignment of the cervical spine. Please note that all CT scans at this facility use dose modulation, iterative reconstruction, and/or weight-based dosing when appropriate to reduce radiation dose to as low as reasonably achievable. Dictated by Shree Waddell MD @ 05/07/2021 5:58:16 PM (Electronically Signed)
[2021-05-07 18:29] LABS: BLOOD UREA NITROGEN,BUN 15 mg/dL (7.0-18.0); CARBON DIOXIDE,CO2 26.8 mmol/L (21.0-32.0); CHLORIDE,CL 103 mmol/L (98-107); GLUCOSE RANDOM 82 mg/dL (74-106); POTASSIUM,K 3.9 mmol/L (3.5-5.1); SODIUM,NA 138 mmol/L (136-145)
== END 2021-05-07 18:54 | disposition home or self-care (01) ==
LOC: MW.ED 16:08
DX: G43.909 Migraine, unspecified, not intractable, without status migrainosus (principal); Z88.0 Allergy status to penicillin; Z91.010 Allergy to peanuts; Z91.040 Latex allergy status; Z88.5 Allergy status to narcotic agent; Z91.030 Bee allergy status; Z88.8 Allergy status to other drugs, medicaments and biological substances
CPT/HCPCS: 36415; 70450; 72125; 80053; 85025; 96374; 96375; 99284; J1200; J1885; J2765

== ENCOUNTER 2022-04-11 23:34 | Emergency (ER) | payer BC, OTHER ==
[2022-04-12 00:47] LABS: CORONAVIRUS COVID-19 NAA NEGATIVE (NEGATIVE); INFLUENZA A NAA NEGATIVE (NEGATIVE); INFLUENZA B NAA NEGATIVE (NEGATIVE)
[2022-04-12 01:08] LABS: ACETAMINOPHEN <2.0 ug/mL; BLOOD UREA NITROGEN,BUN 16 mg/dL (7.0-18.0); CARBON DIOXIDE,CO2 28.2 mmol/L (21.0-32.0); CHLORIDE,CL 101 mmol/L (98-107); GLUCOSE RANDOM 100 mg/dL (74-106); POTASSIUM,K 4.2 mmol/L (3.5-5.1); SODIUM,NA 137 mmol/L (136-145)
[2022-04-12 01:15] LABS: ESTIMATED GFR 88 mL/min (>60)
== END 2022-04-12 10:48 ==
LOC: MW.ED 23:34
DX: F32.2 Major depressive disorder, single episode, severe without psychotic features (principal); R45.851 Suicidal ideations; Z88.0 Allergy status to penicillin; Z91.040 Latex allergy status; Z91.010 Allergy to peanuts; Z88.5 Allergy status to narcotic agent; Z91.030 Bee allergy status; Z88.8 Allergy status to other drugs, medicaments and biological substances; Z20.822 Contact with and (suspected) exposure to COVID-19
CPT/HCPCS: 0240U; 36415; 80053; 80143; 80179; 80305; 80307; 81001; 81003; 81025; 83735; 84443; 85025; 93005; 99285

== ENCOUNTER 2022-08-05 17:38 | Emergency (ER) | payer BC ==
[2022-08-05 18:48] LABS: BLOOD UREA NITROGEN,BUN 11 mg/dL (7.0-18.0); CARBON DIOXIDE,CO2 28.6 mmol/L (21.0-32.0); CHLORIDE,CL 104 mmol/L (98-107); GLUCOSE RANDOM 125 mg/dL (74-106); POTASSIUM,K 3.5 mmol/L (3.5-5.1); SODIUM,NA 142 mmol/L (136-145)
[2022-08-05 18:52] LABS: ESTIMATED GFR 101 mL/min (>60)
== END 2022-08-05 19:24 | disposition home or self-care (01) ==
LOC: MW.ED 17:38
DX: R07.89 Other chest pain (principal); R42 Dizziness and giddiness; R53.83 Other fatigue; T45.4X5A Adverse effect of iron and its compounds, initial encounter; J45.909 Unspecified asthma, uncomplicated; Z88.6 Allergy status to analgesic agent; Z91.018 Allergy to other foods; Z91.030 Bee allergy status; Z88.5 Allergy status to narcotic agent; Z91.040 Latex allergy status; Z88.8 Allergy status to other drugs, medicaments and biological substances; Z91.010 Allergy to peanuts; Z88.0 Allergy status to penicillin; Z79.899 Other long term (current) drug therapy
CPT/HCPCS: 36415; 80053; 84484; 85025; 99285

== ENCOUNTER 2022-12-09 20:28 | Emergency (ER) | payer BC ==
[2022-12-09] MEDS ORDERED: Sodium Chloride 0.9% 1,000 ML IV ONE (22:18)
[2022-12-09] MEDS ORDERED: Metoclopramide 10 MG/2 ML SDV IVPUSH ONE (22:18)
[2022-12-09] MEDS ORDERED: diphenhydrAMINE 50 MG/ML SDV IVPUSH ONE (22:18)
[2022-12-09] MEDS ORDERED: Ketorolac 30 MG/ML SDV IVPUSH ONE (22:18)
[2022-12-09] MEDS ORDERED: Acetaminophen/Butalbital/Caffeine 325-50-40 MG Tab PO ONE (22:20)
[2022-12-09 22:54] LABS: BASOPHILS PERCENT AUTO 0.2 % (0.0-1.5); EOSINOPHILS PERCENT AUTO 0.5 % (0.0-7.0); HEMATOCRIT 41.2 % (36.0-46.0); HEMOGLOBIN 14.2 g/dL (12.0-16.0); LYMPHOCYTES ABSOLUTE AUTO 1.6 K/uL (0.6-2.4); LYMPHOCYTES PERCENT AUTO 37.1 % (16.0-40.0); MEAN CORPUSCULAR HEMOGLOBIN 30.1 pg (27.0-32.0); MEAN CORPUSCULAR HGB CONC 34.5 g/dL (31.0-37.0); MEAN CORPUSCULAR VOLUME 87.5 fL (80.0-98.0); MONOCYTES ABSOLUTE AUTO 0.5 K/uL (0.0-0.8); MONOCYTES PERCENT AUTO 11.1 % (0.0-15.0); NEUTROPHILS ABSOLUTE AUTO 2.2 K/uL (1.4-5.7); NEUTROPHILS PERCENT AUTO 51.1 % (48.0-80.0); NRBC ABSOLUTE 0 K/uL; PLATELET COUNT,PLT 216 K/uL (150-400); RED BLOOD CELL COUNT 4.71 M/uL (4.30-5.90); WHITE BLOOD CELL COUNT,WBC 4.31 K/uL (4.0-11.0)
[2022-12-09 23:15] LABS: A/G RATIO 0.9 (0.9-1.6); ALBUMIN 3.9 g/dL (3.4-5.0); BILIRUBIN TOTAL 0.4 mg/dL (0.2-1.0); CALCIUM 9.4 mg/dL (8.5-10.1); CARBON DIOXIDE,CO2 27.2 mmol/L (21.0-32.0); CREATININE 0.9 mg/dL (0.6-1.0); EST CRCL DRUG DOSING (CG) 100.3 mL/min; PROTEIN TOTAL,TP 8.2 g/dL (6.4-8.2)
== END 2022-12-10 01:03 | disposition home or self-care (01) ==
LOC: MW.ED 20:28
DX: R51.9 Headache, unspecified (principal); Z88.0 Allergy status to penicillin; Z88.5 Allergy status to narcotic agent; Z88.6 Allergy status to analgesic agent; Z88.8 Allergy status to other drugs, medicaments and biological substances; Z91.040 Latex allergy status; Z91.030 Bee allergy status; Z91.018 Allergy to other foods
CPT/HCPCS: 36415; 80053; 83735; 84703; 85025; 96374; 96375; 99284; A9270; J1200; J1885; J2765; J7030

== ENCOUNTER 2023-12-13 14:26 | Emergency (ER) | payer MEDICAID | END 2023-12-13 15:20 | disposition home or self-care (01) | LOC: MW.ED 14:26 | DX: F32.A Depression, unspecified (principal); J45.909 Unspecified asthma, uncomplicated; E78.00 Pure hypercholesterolemia, unspecified; Z79.899 Other long term (current) drug therapy; Z88.6 Allergy status to analgesic agent; Z91.048 Other nonmedicinal substance allergy status; Z91.040 Latex allergy status; Z91.018 Allergy to other foods; Z88.5 Allergy status to narcotic agent; Z88.0 Allergy status to penicillin; Z91.030 Bee allergy status | CPT/HCPCS: 99283 ==